=== PATIENT | male | born 2000 | race Caucasian/White ===

== ENCOUNTER 2022-08-09 16:59 | Emergency (ER) | payer SELFPAY ==
[2022-08-09 17:16] VITALS: BP 135/73; PULSE 82; RESP 18; TEMP 97; BMI 23.3
[2022-08-09] MEDS ORDERED: SODIUM CHLORIDE 1,000 ML IV STA (18:34)
[2022-08-09] MEDS ORDERED: ACETAMINOPHEN 1000 MG/100 ML BAG IVPB ONE (18:34)
[2022-08-09 19:03] LABS: PH,URINE 5.5 (5.0-8.0); URINE APPEARANCE CLEAR; URINE BILIRUBIN NEGATIVE (NEGATIVE); URINE COLOR YELLOW; URINE GLUCOSE (UA) NEGATIVE (NEGATIVE); URINE KETONE NEGATIVE (NEGATIVE); URINE LEUK ESTERASE NEGATIVE (NEGATIVE); URINE NITRITE NEGATIVE (NEGATIVE); URINE PROTEIN NEGATIVE (NEGATIVE); URINE UROBILINOGEN 0.2 mg/dL (0.2-1.0)
[2022-08-09 19:06] LABS: BASO % 0.6 % (0-2.0); EOS % 2.6 % (0-4.5); HEMATOCRIT 42.8 % (35.4-49); HEMOGLOBIN 14.3 GM/dL (11.7-16.9); LYMPH % 46.7 % (8-40); MCH 28.6 pg (25.7-33.7); MCHC 33.5 g/dl (32.0-35.9); MEAN CELL VOLUME 85.3 fl (80-96); MONO % 13.4 % (3.8-10.2); NEUT % 36.7 % (42.8-82.8); PLATELET COUNT 275 10^3/uL (134-434); RBC 5.01 M/mm3 (4.00-5.60); RDW 13.2 % (11.9-15.9); WHITE BLOOD COUNT 4.9 K/mm3 (4.0-10.0)
[2022-08-09 19:29] LABS: BLOOD UREA NITROGEN 14.7 mg/dL (7-18)
[2022-08-09 19:30] LABS: ALBUMIN 4.4 g/dl (3.4-5.0)
[2022-08-09 19:33] LABS: CREATININE 0.8 mg/dL (0.55-1.3)
[2022-08-09 19:34] LABS: BILIRUBIN,TOTAL 1.1 mg/dL (0.2-1); TOT PROT 8.1 g/dl (6.4-8.2)
== END 2022-08-09 21:29 | disposition left against medical advice (07) ==
LOC: JER 16:59
DX: R30.0 Dysuria (principal)
CPT/HCPCS: 36415; 71046-TC-FY; 76775-TC; 80053; 81003; 84484; 85025; 93005; 93010; 99285-25